=== PATIENT | female | born 1980 | race Caucasian/White ===

== ENCOUNTER → 2017-04-30 | Outpatient (CLI) | payer OTHER ==
[~2017-04-30] VITALS: Ht 162.6 cm; Wt 60.0 kg
[~2017-04-30] MED LIST: HYDROCODON-ACE1 EAC7 PO; IBUPROFEN800 MG PO; LEXAPRO5 MG PO; PRENATAL VITAM1 EAC3 PO
[2017-04-30 08:50] VITALS: BP 137/69
== END | disposition home or self-care (01) ==
LOC: IVINF 08:30
DX: Z31.82 Encounter for Rh incompatibility status (principal); Z3A.28 28 weeks gestation of pregnancy
CPT/HCPCS: 96372; J2790

== ENCOUNTER 2017-07-16 03:44 | Inpatient (IN) | payer OTHER ==
[~2017-07-16] VITALS: Ht 162.6 cm; Wt 64.4 kg
[2017-07-16] VITALS (10 sets, daily range): BP systolic 105–150; BP diastolic 52–91
[2017-07-16 05:53] LABS: EOSINOPHIL COUNT 0.1 K/uL (0-0.3); HEMATOCRIT 58.6 % (36.0-46.0); IMMATURE GRANULOCYTE (%) 0.7 % (0.0-0.7); INSTRUMENT ABS NEUTROPHIL CT 4.4 K/uL; MCH 29.4 PG (29.0-34.0); MCHC 32.9 G/DL (30.0-36.0); MCV 89.2 FL (83-99); MEAN PLAT.VOLUME 11.5 uM^3 (9.5-12.4); MONOCYTE (%) 3.8 % (3-12); MONOCYTE COUNT 0.2 K/uL (0-0.8); NEUTROPHIL (%) 77.4 % (45-76); NEUTROPHIL COUNT 4.4 K/uL (1.8-6.4); PLATELET COUNT 73 K/uL (156-360); RBC DIS.WIDTH-CV 13.6 % (11.8-14.6); RBC DIS.WIDTH-SD 42.8 % (39-53); RED BLOOD COUNT 6.57 M/uL (3.80-5.20); WHITE BLOOD COUNT 5.7 K/uL (4.1-10.2)
[2017-07-16 06:57] LABS: EOSINOPHIL (%) 0.2 % (0-5); HEMATOCRIT 35.6 % (36.0-46.0); IMMATURE GRANULOCYTE (%) 0.6 % (0.0-0.7); IMMATURE GRANULOCYTE COUNT 0.1 K/uL; INSTRUMENT ABS NEUTROPHIL CT 11.1 K/uL; LYMPHOCYTE COUNT 1.3 K/uL (1.0-2.8); MCHC 32.6 G/DL (30.0-36.0); MEAN PLAT.VOLUME 11.3 uM^3 (9.5-12.4); MONOCYTE COUNT 0.5 K/uL (0-0.8); NEUTROPHIL (%) 85.1 % (45-76); NEUTROPHIL COUNT 11.1 K/uL (1.8-6.4); RBC DIS.WIDTH-CV 13.2 % (11.8-14.6); RBC DIS.WIDTH-SD 43.8 % (39-53)
[2017-07-16 06:58] LABS: PLATELET COUNT 141 K/uL (156-360); RED BLOOD COUNT 3.87 M/uL (3.80-5.20)
[2017-07-17 05:26] LABS: BASOPHIL COUNT 0.1 K/uL (0-0.1); EOSINOPHIL (%) 1.4 % (0-5); EOSINOPHIL COUNT 0.2 K/uL (0-0.3); IMMATURE GRANULOCYTE (%) 0.7 % (0.0-0.7); IMMATURE GRANULOCYTE COUNT 0.1 K/uL; INSTRUMENT ABS NEUTROPHIL CT 7.6 K/uL; LYMPHOCYTE COUNT 2.7 K/uL (1.0-2.8); MCH 28.8 PG (29.0-34.0); MCHC 31.5 G/DL (30.0-36.0); MCV 91.6 FL (83-99); MONOCYTE (%) 6.1 % (3-12); MONOCYTE COUNT 0.7 K/uL (0-0.8); NEUTROPHIL (%) 67.7 % (45-76); NEUTROPHIL COUNT 7.6 K/uL (1.8-6.4); PLATELET COUNT 154 K/uL (156-360); RBC DIS.WIDTH-CV 13.2 % (11.8-14.6); RBC DIS.WIDTH-SD 43.2 % (39-53); RED BLOOD COUNT 3.71 M/uL (3.80-5.20); WHITE BLOOD COUNT 11.3 K/uL (4.1-10.2)
[2017-07-17 07:36] VITALS: BP 109/59
[2017-07-17] MEDS ORDERED: MOTRIN800 MG PO (09:22)
== END 2017-07-17 12:56 | disposition home or self-care (01) | DRG 775 ==
LOC: LDRP-OP 03:44 → 2WEST 03:45 → LDRP-OP 08-17 09:55
PROVIDERS: Midwife
DX: O70.0 First degree perineal laceration during delivery (principal); Z37.0 Single live birth; Z3A.39 39 weeks gestation of pregnancy; F41.0 Panic disorder [episodic paroxysmal anxiety]; O99.344 Other mental disorders complicating childbirth; G43.B0 Ophthalmoplegic migraine, not intractable; O26.893 Other specified pregnancy related conditions, third trimester; O69.1XX0 Labor and delivery complicated by cord around neck, with compression, not applicable or unspecified
CPT/HCPCS: 85025; 85025 91; C1755; J7120